=== PATIENT | male | born 1975 | race Two or more races ===

== ENCOUNTER 2018-02-08 15:25 | Emergency (ER) | payer MEDICAID ==
[2018-02-08 15:47] VITALS: BP 179/115
[2018-02-08 15:57] LABS: CHLORIDE,CL 105 mEq/L (98-106); SODIUM,NA 140 mEq/L (136-145)
[2018-02-08] MEDS ORDERED: Acetaminophen 325 MG Tab PO ONE (16:44)
[2018-02-08] MEDS: Acetaminophen 500 MG Tab ONE ×2 (16:59)
--- NOTE | 2018-02-08 17:13 | EDM.PDOC ---
ED HPI GENERAL MEDICAL PROBLEM - General Chief Complaint: Neuro Symptoms/Deficits Stated Complaint: L) sided weakness Time Seen by Provider: 02/08/18 16:19 Source of Information: Reports: Patient History Limitations: Reports: No Limitations - History of Present Illness INITIAL COMMENTS - FREE TEXT/NARRATIVE: Patient presents to ER with complaints of left sided weakness. He states strength is gone in left arm and his leg is very weak. Has to drag it at times , transfers and walking very difficult. Relates that this is the 3rd episode of this happening. He presented initially to [place] [facility] back in December. Was evaluated there and transferred to [facility]. States they didn't find anything acute so discharged him home with PT/OT. States the symptoms did get better and he returned back to his [employer] business. He then again had the same thing happen on the 12 of January and again was sent back to [facility]. Did have an MRI both times per patient and were negative for acute findings. He has not went to PT but admits that his strength has never returned back to his norm. He has found it difficult to work due to weakness but he "was able to get by". Last evening, again had increase in weakness and movement of his left arm and leg. Feels it's difficult to speak at times. Nurses did note it was difficult to transfer patient out of the car when he got here. Patient feels he needs to be evaluated for a second opinion as he "hasn't really gotten any answers about why this is happening". Denies any incontinence. No history of seizures. Onset: Today, Gradual Duration: Hour(s):, Constant Location: Reports: Upper Extremity, Left, Lower Extremity, Left Quality: Reports: Other (weakness) Improves with: Reports: None Worsens with: Reports: None Associated Symptoms: Reports: Headaches, Weakness. Denies: Confusion, Chest Pain, Cough, Diaphoresis, Fever/Chills, Loss of Appetite, Nausea/Vomiting, Shortness of Breath, Syncope - Related Data Allergies Allergy/AdvReac Type Severity Reaction Status Date / Time No Known Allergies Allergy Verified 02/08/18 15:49 Past Medical History - Past Health History Medical/Surgical History: Denies Medical/Surgical History HEENT History: Reports: Impaired Vision Cardiovascular History: Reports: None Respiratory History: Reports: None Gastrointestinal History: Reports: Other (See Below) Other Gastrointestinal History: abdominal hernia Genitourinary History: Reports: None Musculoskeletal History: Reports: None Neurological History: Reports: None Psychiatric History: Reports: None Endocrine/Metabolic History: Reports: None Hematologic History: Reports: None Immunologic History: Reports: None Oncologic (Cancer) History: Reports: None Dermatologic History: Reports: None - Infectious Disease History Infectious Disease History: Reports: None Social & Family History - Family History Family Medical History: Unobtainable Neurological: Reports: CVA Other Neurological Family History: Uncle and grandfather - Tobacco Use Smoking Status *Q: Current Every Day Smoker Years of Tobacco use: 25 Packs/Tins Daily: 0.2 - Caffeine Use Caffeine Use: Reports: Energy Drinks, Soda - Recreational Drug Use Recreational Drug Use: Yes Recreational Drug Type: Reports: Marijuana/Hashish Recreational Drug Use Frequency: Daily ED ROS GENERAL - Review of Systems Review Of Systems: See Below Constitutional: Reports: Weakness, Fatigue. Denies: Fever, Chills, Malaise, Decreased Appetite HEENT: Denies: Ear Pain, Sinus Problem, Throat Pain, Vertigo, Vision Change Respiratory: Denies: Shortness of Breath, Cough Cardiovascular: Denies: Chest Pain, Edema, Lightheadedness Endocrine: Reports: Fatigue GI/Abdominal: Denies: Abdominal Pain, Nausea, Vomiting : Reports: No Symptoms Musculoskeletal: Reports: No Symptoms Skin: Reports: No Symptoms Neurological: Reports: Headache, Numbness, Pre-Existing Deficit, Difficulty Walking, Weakness, Gait Disturbance. Denies: Syncope Psychiatric: Reports: No Symptoms ED EXAM, NEURO - Physical Exam Exam: See Below Exam Limited By: No Limitations General Appearance: Alert, WD/WN Eye Exam: Bilateral Eye: PERRL Ears: Normal External Exam, Normal TMs Nose: Normal Inspection, Normal Mucosa, No Blood Throat/Mouth: Normal Inspection, Normal Oropharynx Head Exam: Normocephalic Neck: Normal Inspection, Supple, Non-Tender, Full Range of Motion Respiratory/Chest: No Respiratory Distress, Lungs Clear, Normal Breath Sounds Cardiovascular: Regular Rate, Rhythm, No Edema GI/Abdominal: Normal Bowel Sounds, Soft, Non-Tender Neurological: Alert, CN II-XII Intact, Oriented x 3, Abnormal Finger to Nose ( all abnormals to left arm and leg. Mild facial droop on the left. Does stutter with speech. ), Abnormal Sensation, Abnormal Light Touch, Abnormal Motor, Abnormal Pin Prick, Abn 2 Pt Discrimination, Difficulty Walking DTR: 0: Bicep (L), Achilles (L), 1+: Bicep (R), Achilles (R) Extremities: Normal Inspection, Normal Capillary Refill Skin Exam: Warm, Dry Course - Vital Signs Last Recorded V/S: Last Vital Signs Temp 97.8 F 02/08/18 15:25 Pulse 84 02/08/18 15:25 Resp 18 02/08/18 15:25 BP 179/115 H 02/08/18 15:25 Pulse Ox 100 02/08/18 15:25 - Orders/Labs/Meds Orders: Active Orders 24 hr Category Date Time Status Head wo Cont [CT] Stat Exams 02/08/18 15:32 Taken Labs: Laboratory Tests 02/08/18 02/08/18 02/08/18 Range/Units 15:31 15:31 15:35 WBC 7.1 (5.0-10.0) 10^3/uL RBC 4.42 L (4.50-6.00) 10^6/uL Hgb 13.9 L (14.0-18.0) g/dL Hct 40.4 (40.0-54.0) % MCV 91.4 (82.0-94.0) fL MCH 31.4 (27.0-32.0) pg MCHC 34.4 (33.0-38.0) g/dL RDW Coeff of Swetha 12.6 (11.0-15.0) % Plt Count 172 (150-400) 10^3/uL Neut % (Auto) 60.9 (35-85) % Lymph % (Auto) 25.4 (10-55) % [place] % (Auto) 9.9 (0-16) % Eos % (Auto) 3.5 (0-5) % Baso % (Auto) 0.3 (0-3) % Neut # (Auto) 4.29 (1.80-7.00) 10^3/uL Lymph # (Auto) 1.79 (1.00-4.80) 10^3/uL [place] # (Auto) 0.70 (0.00-0.80) 10^3/uL Eos # (Auto) 0.25 (0.00-0.45) 10^3/uL Baso # (Auto) 0.02 10^3/uL PT (9.7-12.3) SEC INR (0.92-1.18) APTT (23.2-32.3) SEC Sodium (136-145) mEq/L Potassium (3.5-5.0) mEq/L Chloride (98-106) mEq/L Carbon Dioxide (21-32) mmol/L BUN (7-18) mg/dL Creatinine (0.7-1.3) mg/dL Est Cr Clr Drug Dosing mL/min Estimated GFR (MDRD) (>=60) mL/min Glucose (75-99) mg/dL Calcium (8.4-10.1) mg/dL Creatine Kinase (35-232) U/L Troponin I (0.00-0.06) ng/mL Urine Color Light yellow (YELLOW) Urine Appearance Clear (CLEAR) Urine pH 7.0 (4.5-8.0) Ur Specific [place] 1.010 (1.003-1.020) Urine Protein Negative (NEGATIVE) mg/dL Urine Glucose (UA) Negative (NEGATIVE) mg/dL Urine Ketones Negative (NEGATIVE) mg/dL Urine Occult Blood Negative (NEGATIVE) Urine Nitrite Negative (NEGATIVE) Urine Bilirubin Negative (NEGATIVE) Urine Urobilinogen 0.2 (0.2-1.0) EU/dL Ur Leukocyte Esterase Negative (NEGATIVE) Urine RBC Not seen (0-5) /HPF Urine WBC Not seen (0-5) /HPF Urine Opiates Screen Negative (NEGATIVE) Ur Oxycodone Screen Negative (NEGATIVE) Urine Methadone Screen Negative (NEGATIVE) Ur Barbiturates Screen Negative (NEGATIVE) U Tricyclic Antidepress Negative (NEGATIVE) Ur Phencyclidine Scrn Negative (NEGATIVE) Ur Amphetamine Screen Negative (NEGATIVE) U Methamphetamines Scrn Negative (NEGATIVE) Urine MDMA Screen Negative (NEGATIVE) U Benzodiazepines Scrn Negative (NEGATIVE) Urine Cocaine Screen Negative (NEGATIVE) U Marijuana (THC) Screen Positive H (NEGATIVE) 02/08/18 02/08/18 Range/Units 15:35 15:35 WBC (5.0-10.0) 10^3/uL RBC (4.50-6.00) 10^6/uL Hgb (14.0-18.0) g/dL Hct (40.0-54.0) % MCV (82.0-94.0) fL MCH (27.0-32.0) pg MCHC (33.0-38.0) g/dL RDW Coeff of Swetha (11.0-15.0) % Plt Count (150-400) 10^3/uL Neut % (Auto) (35-85) % Lymph % (Auto) (10-55) % [place] % (Auto) (0-16) % Eos % (Auto) (0-5) % Baso % (Auto) (0-3) % Neut # (Auto) (1.80-7.00) 10^3/uL Lymph # (Auto) (1.00-4.80) 10^3/uL [place] # (Auto) (0.00-0.80) 10^3/uL Eos # (Auto) (0.00-0.45) 10^3/uL Baso # (Auto) 10^3/uL PT 10.2 (9.7-12.3) SEC INR 0.98 (0.92-1.18) APTT 28.3 (23.2-32.3) SEC Sodium 140 (136-145) mEq/L Potassium 3.9 (3.5-5.0) mEq/L Chloride 105 (98-106) mEq/L Carbon Dioxide 25 (21-32) mmol/L BUN 7 (7-18) mg/dL Creatinine 0.9 (0.7-1.3) mg/dL Est Cr Clr Drug Dosing 108.01 mL/min Estimated GFR (MDRD) > 60 (>=60) mL/min Glucose 139 H (75-99) mg/dL Calcium 8.7 (8.4-10.1) mg/dL Creatine Kinase 84 (35-232) U/L Troponin I < 0.017 (0.00-0.06) ng/mL Urine Color (YELLOW) Urine Appearance (CLEAR) Urine pH (4.5-8.0) Ur Specific [place] (1.003-1.020) Urine Protein (NEGATIVE) mg/dL Urine Glucose (UA) (NEGATIVE) mg/dL Urine Ketones (NEGATIVE) mg/dL Urine Occult Blood (NEGATIVE) Urine Nitrite (NEGATIVE) Urine Bilirubin (NEGATIVE) Urine Urobilinogen (0.2-1.0) EU/dL Ur Leukocyte Esterase (NEGATIVE) Urine RBC (0-5) /HPF Urine WBC (0-5) /HPF Urine Opiates Screen (NEGATIVE) Ur Oxycodone Screen (NEGATIVE) Urine Methadone Screen (NEGATIVE) Ur Barbiturates Screen (NEGATIVE) U Tricyclic Antidepress (NEGATIVE) Ur Phencyclidine Scrn (NEGATIVE) Ur Amphetamine Screen (NEGATIVE) U Methamphetamines Scrn (NEGATIVE) Urine MDMA Screen (NEGATIVE) U Benzodiazepines Scrn (NEGATIVE) Urine Cocaine Screen (NEGATIVE) U Marijuana (THC) Screen (NEGATIVE) Meds: Medications Discontinued Medications Generic Name Dose Route Start Last Admin Trade Name Ashley PRN Reason Stop Dose Admin Acetaminophen 1,000 mg 02/08/18 16:44 02/08/18 17:00 Tylenol PO 02/08/18 16:45 1,000 mg NOW ONE Administration Acetaminophen Confirm 02/08/18 16:54 02/08/18 16:59 Tylenol Extra Strength Administered 02/08/18 16:55 Not Given Dose 1,000 mg .ROUTE .STK-MED ONE - Re-Assessments/Exams Free Text/Narrative Re-Assessment/Exam: 02/08/18 1700 Labs reviewed, all normal except mildly elevated blood sugar and positive screen for THC. CT scan of the head is normal Consulted with [facility] and spoke with neurologist and hospitalist, Dr. Carpio. Agreed to accept the patient in transfer. Patient aware of risks and benefits of transfer. Risks of transfer include worsening status, vehicular crash and even . Benefits of transfer include more specialized neurological care, interventions and treatment. Risks of non transfer include worsening status and . Benefits of non transfer include care closer to home. Patient and mother agree to transfer and verbalize understanding. Departure - Departure Time of Disposition: 17:12 Disposition: DC/Tfer to Acute Hospital 02 Condition: Undetermined Clinical Impression: Limb weakness - Discharge Information *PRESCRIPTION DRUG MONITORING PROGRAM REVIEWED*: No *COPY OF PRESCRIPTION DRUG MONITORING REPORT IN PATIENT MUSA: No Referrals: Kristian Remy, CO[employer]ING MACHINE OPERATOR [Primary Care Provider] - Forms: ED Department Discharge Additional Instructions: Transfer BLS to [facility] Schreiber to Dr. Carpio - My Orders Last 24 Hours: My Active Orders 02/08/18 15:32 Head wo Cont [CT] Stat - Assessment/Plan Last 24 Hours: My Active Orders 02/08/18 15:32 Head wo Cont [CT] Stat
== END 2018-02-08 17:50 ==
LOC: CC.ED 15:25
DX: M62.81 Muscle weakness (generalized) (principal); F17.210 Nicotine dependence, cigarettes, uncomplicated; R51 Headache
CPT/HCPCS: 36415; 70450; 80048; 80305; 81001; 82550; 84484; 85025; 85610; 85730; 93005; 99285; A9270

== ENCOUNTER 2021-01-03 02:33 | Emergency (ER) | payer MEDICAID, OTHER ==
[2021-01-03 02:38] VITALS: BP 142/92; PULSE 94
[2021-01-03 03:01] LABS: CHLORIDE,CL 104 mEq/L (98-106); SODIUM,NA 142 mEq/L (136-145)
--- NOTE | 2021-01-03 03:18 | EDM.PDOC ---
ED HPI GENERAL MEDICAL PROBLEM - General Chief Complaint: Abdominal Pain Stated Complaint: R)abd pain Time Seen by Provider: 01/03/21 03:00 Source of Information: Reports: Patient History Limitations: Reports: No Limitations - History of Present Illness INITIAL COMMENTS - FREE TEXT/NARRATIVE: Pt presents to the ER with abdominal pain. He states that it has been 2 days since having a bowel movement. He relates he usually has 1-2 a day. He has had multiple ER visits for this in [place] [facility] for the same concerns and has been instructed to see a surgeon to have his inguinal and umbilical hernias repaired and he has not followed through with it. He was last seen in the [place] ER 12/24/[address] and it showed he had hernias. He has not had a fever with this. He did eat normally today without any vomiting or increase in his pain. Onset: Gradual Location: Reports: Abdomen, Generalized Right Middle Abdomen Pain Score (Numeric/FACES): 8 - Related Data Allergies Allergy/AdvReac Type Severity Reaction Status Date / Time No Known Allergies Allergy Verified 12/23/20 23:56 Home Meds: Home Meds . [No Known Home Meds] 04/03/19 [History] Past Medical History - Past Health History Medical/Surgical History: Denies Medical/Surgical History HEENT History: Reports: Impaired Vision Other HEENT History: wears glasses. 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 Worse this past week. Psychiatric History: Reports: None Other Psychiatric History: Conversion Disorder Endocrine/Metabolic History: Reports: None Hematologic History: Reports: None Immunologic History: Reports: None Oncologic (Cancer) History: Reports: None Dermatologic History: Reports: None - Infectious Disease History Infectious Disease History: Reports: None - Past Surgical History HEENT Surgical History: Reports: None GI Surgical History: Reports: None Social & Family History - Family History Family Medical History: No Pertinent Family History Neurological: Reports: CVA Other Neurological Family History: Uncle and grandfather - Tobacco Use Tobacco Use Status *Q: Current Every Day Tobacco User Years of Tobacco use: 20 Packs/Tins Daily: 1 - Caffeine Use Caffeine Use: Reports: Coffee, Energy Drinks, Soda Caffeine Use Comment: 2 pots daily - Recreational Drug Use Recreational Drug Type: Reports: Marijuana/Hashish - Living Situation & Occupation Living situation: Reports: , with Family Occupation: Employed ED ROS GENERAL - Review of Systems Review Of Systems: See Below Constitutional: Denies: Fever, Chills, Decreased Appetite Respiratory: Reports: No Symptoms Cardiovascular: Reports: No Symptoms GI/Abdominal: Reports: Abdominal Pain, Constipation. Denies: Anorexia, Bloody Stool, Decreased Appetite, Nausea, Vomiting Neurological: Reports: No Symptoms ED EXAM, GI/ABD - Physical Exam Exam: See Below Exam Limited By: No Limitations General Appearance: Alert, WD/WN, No Apparent Distress Respiratory/Chest: No Respiratory Distress, Lungs Clear, Normal Breath Sounds Cardiovascular: Regular Rate, Rhythm, No Edema GI/Abdominal Exam: Normal Bowel Sounds, Soft, No Organomegaly, Tender (generalized tenderness noted to all abdomen) Extremities: Normal Inspection Neurological: Alert, Oriented Skin Exam: Warm, Dry, Intact Course - Vital Signs Last Recorded V/S: Last Vital Signs Temp 97.5 F 01/03/21 02:37 Pulse 94 01/03/21 02:37 Resp 18 01/03/21 02:37 BP 142/92 H 01/03/21 02:37 Pulse Ox 96 01/03/21 02:37 - Orders/Labs/Meds Orders: Active Orders 24 hr Category Date Time Status Abdomen 2V AP Flat Upright [CR] Stat Exams 01/03/21 02:38 Taken Labs: Laboratory Tests 01/03/21 01/03/21 01/03/21 Range/Units 02:38 02:38 02:38 WBC 11.4 H (4.0-11.0) 10^3/uL RBC 4.90 (4.50-6.00) x10^6/uL Hgb 15.6 (14.0-18.0) g/dL Hct 45.8 (42.0-52.0) % MCV 93.5 (83.0-97.0) fL MCH 31.8 (27.0-32.0) pg MCHC 34.1 (32.0-36.0) g/dL RDW Coeff of Swetha 12.6 (11.0-15.0) % Plt Count 189 (150-400) 10^3/uL Immature Gran % (Auto) 0.3 (0.0-4.9) % Neut % (Auto) 68.8 (41-71) % Lymph % (Auto) 20.3 L (24-44) % [place] % (Auto) 8.4 (0-10) % Eos % (Auto) 1.8 (0-6) % Baso % (Auto) 0.4 (0-1) % Neut # (Auto) 7.82 (1.80-8.00) x10^3/uL Lymph # (Auto) 2.31 (0.60-5.00) 10^3/uL [place] # (Auto) 0.95 (0.00-1.50) 10^3/uL Eos # (Auto) 0.21 (0.00-1.50) 10^3/uL Baso # (Auto) 0.04 (0.00-0.50) 10^3/uL Immature Gran # (Auto) 0.03 (0.00-0.49) 10^3/uL Sodium 142 (136-145) mEq/L Potassium 4.4 (3.5-5.0) mEq/L Chloride 104 (98-106) mEq/L Carbon Dioxide 28 (21-32) mmol/L BUN 14 D (7-18) mg/dL Creatinine 1.1 (0.7-1.3) mg/dL Est Cr Clr Drug Dosing 61.24 mL/min Estimated GFR (MDRD) > 60 (>=60) mL/min Glucose 116 H (75-99) mg/dL Lactic Acid 0.7 (0.4-2.0) mmol/L Calcium 8.9 (8.4-10.1) mg/dL Total Bilirubin 0.4 (0.0-1.0) mg/dL AST 26 (15-37) U/L ALT 46 (12-78) U/L Alkaline Phosphatase 60 (46-116) U/L C-Reactive Protein < 0.2 L (0.2-0.8) mg/dL Total Protein 8.2 (6.4-8.2) g/dL Albumin 3.9 (3.4-5.0) g/dL Amylase 57 (25-115) U/L Lipase 101 (73-393) U/L Urine Color (YELLOW) Urine Appearance (CLEAR) Urine pH (4.5-8.0) Ur Specific [place] (1.003-1.020) Urine Protein (NEGATIVE) mg/dL Urine Glucose (UA) (NEGATIVE) mg/dL Urine Ketones (NEGATIVE) mg/dL Urine Occult Blood (NEGATIVE) Urine Nitrite (NEGATIVE) Urine Bilirubin (NEGATIVE) Urine Urobilinogen (0.2-1.0) EU/dL Ur Leukocyte Esterase (NEGATIVE) 01/03/21 Range/Units 02:56 WBC (4.0-11.0) 10^3/uL RBC (4.50-6.00) x10^6/uL Hgb (14.0-18.0) g/dL Hct (42.0-52.0) % MCV (83.0-97.0) fL MCH (27.0-32.0) pg MCHC (32.0-36.0) g/dL RDW Coeff of Swetha (11.0-15.0) % Plt Count (150-400) 10^3/uL Immature Gran % (Auto) (0.0-4.9) % Neut % (Auto) (41-71) % Lymph % (Auto) (24-44) % [place] % (Auto) (0-10) % Eos % (Auto) (0-6) % Baso % (Auto) (0-1) % Neut # (Auto) (1.80-8.00) x10^3/uL Lymph # (Auto) (0.60-5.00) 10^3/uL [place] # (Auto) (0.00-1.50) 10^3/uL Eos # (Auto) (0.00-1.50) 10^3/uL Baso # (Auto) (0.00-0.50) 10^3/uL Immature Gran # (Auto) (0.00-0.49) 10^3/uL Sodium (136-145) mEq/L Potassium (3.5-5.0) mEq/L Chloride (98-106) mEq/L Carbon Dioxide (21-32) mmol/L BUN (7-18) mg/dL Creatinine (0.7-1.3) mg/dL Est Cr Clr Drug Dosing mL/min Estimated GFR (MDRD) (>=60) mL/min Glucose (75-99) mg/dL Lactic Acid (0.4-2.0) mmol/L Calcium (8.4-10.1) mg/dL Total Bilirubin (0.0-1.0) mg/dL AST (15-37) U/L ALT (12-78) U/L Alkaline Phosphatase (46-116) U/L C-Reactive Protein (0.2-0.8) mg/dL Total Protein (6.4-8.2) g/dL Albumin (3.4-5.0) g/dL Amylase (25-115) U/L Lipase (73-393) U/L Urine Color Yellow (YELLOW) Urine Appearance Clear (CLEAR) Urine pH 7.0 (4.5-8.0) Ur Specific [place] 1.025 H (1.003-1.020) Urine Protein Negative (NEGATIVE) mg/dL Urine Glucose (UA) Negative (NEGATIVE) mg/dL Urine Ketones Negative (NEGATIVE) mg/dL Urine Occult Blood Negative (NEGATIVE) Urine Nitrite Negative (NEGATIVE) Urine Bilirubin Negative (NEGATIVE) Urine Urobilinogen 0.2 (0.2-1.0) EU/dL Ur Leukocyte Esterase Negative (NEGATIVE) Meds: Medications Discontinued Medications Generic Name Dose Route Start Last Admin Trade Name Angelitoq PRN Reason Stop Dose Admin Ketorolac Tromethamine 30 mg 01/03/21 03:27 01/03/21 03:34 Ketorolac 30 Mg/Ml Sdv IVPUSH 01/03/21 03:28 30 mg ONETIME ONE Administration - Re-Assessments/Exams Free Text/Narrative Re-Assessment/Exam: 01/03/21 03:39 flat and upright of abdomen does show a large amount of stool. fleets enema given. He flushed toilet prior to staff noting stool. He states that it wasn't large amount. Discussed with him need to have hernias repaired and fx the issue instead of coming to the ER. He has been told this at multiple ER visits in the past also. He does feel better since the enema and the ketoralac and the pain is down to 3- 4 from the 8 that he presented with. Departure - Departure Time of Disposition: 03:51 Disposition: Home, Self-Care 01 Condition: Good Clinical Impression: Hernia of abdominal wall, Obstipation Abdominal pain Qualifiers: Abdominal location: generalized Qualified Code(s): R10.84 - Generalized abdominal pain - Discharge Information *PRESCRIPTION DRUG MONITORING PROGRAM REVIEWED*: Not Applicable *COPY OF PRESCRIPTION DRUG MONITORING REPORT IN PATIENT MUSA: Not Applicable Referrals: PCP,None [Primary Care Provider] - Forms: ED Department Discharge Additional Instructions: Please make appt with the surgeon to have hernias repaired. use laxative or stool softeners to help with the constipation until bowels are normal Tylenol as needed for discomfort Follow up with Primary care provider in the clinic for new concerns as needed. Sepsis Event Note (ED) - Focused Exam Vital Signs: Vital Signs Temp Pulse Resp BP Pulse Ox 01/03/21 02:37 97.5 F 94 18 142/92 H 96 - Problem List & Annotations (1) Abdominal pain SNOMED Code(s): 01908284 Code(s): R10.9 - UNSPECIFIED ABDOMINAL PAIN Status: Acute Priority: High Current Visit: Yes Qualifiers: Abdominal location: generalized Qualified Code(s): R10.84 - Generalized abdominal pain (2) Hernia of abdominal wall SNOMED Code(s): 268245833 Code(s): K43.9 - VENTRAL HERNIA WITHOUT OBSTRUCTION OR GANGRENE Status: Acute Priority: High Current Visit: Yes (3) Obstipation SNOMED Code(s): 843622048 Code(s): K59.00 - CONSTIPATION, UNSPECIFIED Status: Acute Priority: High Current Visit: Yes - Problem List Review Problem List Initiated/Reviewed/Updated: Yes - My Orders Last 24 Hours: My Active Orders 01/03/21 02:38 Abdomen 2V AP Flat Upright [CR] Stat - Assessment/Plan Last 24 Hours: My Active Orders 01/03/21 02:38 Abdomen 2V AP Flat Upright [CR] Stat
[2021-01-03] MEDS: Ketorolac 30 MG/ML SDV IVPUSH ONE (03:34)
== END 2021-01-03 04:00 | disposition home or self-care (01) ==
LOC: CC.ED 02:33
DX: K59.00 Constipation, unspecified (principal); K43.9 Ventral hernia without obstruction or gangrene; Z72.0 Tobacco use
CPT/HCPCS: 36415; 74019; 80053; 81003; 82150; 83605; 83690; 85025; 86140; 96374; 99284-25; J1885

== ENCOUNTER 2025-04-03 20:51 | Emergency (ER) | payer MEDICAID ==
[2025-04-03 21:22] LABS: BASOPHILS ABSOLUTE AUTO 0.03 10^3/uL (0.00-0.50); BASOPHILS PERCENT AUTO 0.4 % (0-1); EOSINOPHILS ABSOLUTE AUTO 0.08 10^3/uL (0.00-1.50); EOSINOPHILS PERCENT AUTO 1.0 % (0-6); IMMATURE GRAN ABSOLUTE AUTO 0.02 10^3/uL (0.00-0.49); IMMATURE GRAN PERCENT AUTO 0.3 % (0.0-4.9); LYMPHOCYTES ABSOLUTE AUTO 1.79 10^3/uL (0.60-5.00); LYMPHOCYTES PERCENT AUTO 23.4 % (24-44); MONOCYTES ABSOLUTE AUTO 0.93 10^3/uL (0.00-1.50); MONOCYTES PERCENT AUTO 12.2 % (0-10); NEUTROPHILS ABSOLUTE AUTO 4.79 x10^3/uL (1.80-8.00); NEUTROPHILS PERCENT AUTO 62.7 % (41-71); PLATELET COUNT,PLT 168 10^3/uL (150-400); RED BLOOD CELL COUNT 4.54 x10^6/uL (4.50-6.00); WHITE BLOOD CELL COUNT,WBC 7.6 10^3/uL (4.0-11.0)
[2025-04-03] MEDS: Ondansetron 4 MG/2 ML SDV IVPUSH STA (21:23)
[2025-04-03 21:34] LABS: ALANINE AMINOTRANSFERASE,ALT 117 U/L (12-78); ASPARTATE AMNIOTRANSFERASE,AST 60 U/L (15-37); BILIRUBIN TOTAL 0.5 mg/dL (0.0-1.0); BLOOD UREA NITROGEN,BUN 11 mg/dL (7-18); CARBON DIOXIDE,CO2 27 mmol/L (21-32); CHLORIDE,CL 102 mEq/L (98-106); CREATININE 1.0 mg/dL (0.7-1.3); EST CRCL DRUG DOSING (CG) 90.34 mL/min; GLUCOSE RANDOM 102 mg/dL (75-99); POTASSIUM,K 3.6 mEq/L (3.5-5.0); PROTEIN TOTAL,TP 7.3 g/dL (6.4-8.2); SODIUM,NA 138 mEq/L (136-145)
[2025-04-03 21:35] LABS: ESTIMATED GFR 93 mL/min (>=60)
[2025-04-03] MEDS: Iopamidol 755 Mg/ML 100 ML Bottle IVPUSH ONE (21:55)
[2025-04-03 22:19] LABS: APPEARANCE,URINE CLEAR (CLEAR); GLUCOSE,URINE NEGATIVE (NEGATIVE); OCCULT BLOOD,URINE TRACE-INTACT (NEGATIVE)
[2025-04-03 22:22] LABS: EPITHELIAL CELLS,URINE RARE /HPF (NOT SEEN)
[2025-04-03 23:27] VITALS: BP 153/89; PULSE 98
[2025-04-03] MEDS: Magnesium Citrate Solution 296 ML Bottle PO ONE (23:59)
[2025-04-03] MEDS: Take Home: Ondansetron 4 MG Tab.DIS, 5 Tab Pack PO ONE (23:59)
== END 2025-04-04 00:09 | disposition home or self-care (01) ==
LOC: CC.ED 20:51
DX: K59.01 Slow transit constipation (principal); R11.2 Nausea with vomiting, unspecified; R10.84 Generalized abdominal pain; E78.00 Pure hypercholesterolemia, unspecified; Z86.16 Personal history of COVID-19; Z79.899 Other long term (current) drug therapy
CPT/HCPCS: 36415; 74177; 80053; 81001; 83690; 83735; 85025; 86140; 96361; 96374; 96375; 99284-25; A9270-GY; J1171; J2405; J7030; Q0162; Q9967